=== PATIENT | female | born 1935 | race Caucasian/White ===

== ENCOUNTER → 2017-02-28 | Outpatient (CLI) | payer MEDICARE, BC | LOC: LAB 12:34 | DX: E13.9 Other specified diabetes mellitus without complications (principal); I10 Essential (primary) hypertension; R20.2 Paresthesia of skin; E55.9 Vitamin D deficiency, unspecified ==

== ENCOUNTER → 2017-03-15 | Outpatient (CLI) | payer MEDICARE, BC | LOC: CARDREHAB 10:33 | DX: R09.02 Hypoxemia (principal); G47.19 Other hypersomnia; I10 Essential (primary) hypertension; E11.9 Type 2 diabetes mellitus without complications | CPT/HCPCS: G0399 ==

== ENCOUNTER → 2017-04-01 | Outpatient (CLI) | payer MEDICARE, BC | LOC: RAD 11:11 | DX: R06.02 Shortness of breath (principal); R09.02 Hypoxemia ==

== ENCOUNTER 2017-05-19 11:00 | Outpatient (RCR) | payer MEDICARE, BC | END 2017-05-19 11:30 | disposition home or self-care (01) | LOC: PT 11:00 | DX: M54.31 Sciatica, right side (principal) ==

== ENCOUNTER → 2017-05-31 | Outpatient (CLI) | payer MEDICARE, BC | LOC: RAD 11:38 | DX: R06.02 Shortness of breath (principal); R09.02 Hypoxemia ==

== ENCOUNTER → 2017-06-21 | Outpatient (CLI) | payer MEDICARE, BC | LOC: LAB 14:17 | DX: R53.83 Other fatigue (principal); R30.0 Dysuria ==

== ENCOUNTER → 2017-07-01 | Outpatient (CLI) | payer MEDICARE, BC | LOC: LAB 14:15 | DX: N39.0 Urinary tract infection, site not specified (principal) ==

== ENCOUNTER 2017-09-21 10:01 | Emergency (ER) | payer MEDICARE, BC ==
[2017-09-21] MEDS ORDERED: NATURE'S BLEND400 I1 (10:26)
[2017-09-21] MEDS ORDERED: BENAZEPRIL40 MG PO (10:26)
[2017-09-21] MEDS ORDERED: VITAMIN B122500 MC1 (10:27)
[2017-09-21 11:03] LABS: BASO # 0.1 (0.02-0.10); EOS # 0.3 (0.04-0.40); EOS % 3.3 % (1.0-5.0); HEMATOCRIT 41.5 % (37.0-47.0); HEMOGLOBIN 13.4 g/dL (12.5-16.0); LYMPH# 3.1 (1.50-4.00); MEAN CELL VOLUME 87 fl (78-100); MEAN CORPUSCULAR HEMOGLOBIN 28 pg (27-31); MEAN CORPUSCULAR HGB CONC 32 g/dL (33-37); MEAN PLATELET VOLUME 8.4 fl (7.4-10.4); NEU # 4.6 (1.40-6.50); PLATELET COUNT 257 K/mm3 (130-400); RED BLOOD COUNT 4.75 M/mm3 (4.10-5.30); RED CELL DISTRIBUTION WIDTH 14.4 % (11.5-14.5)
[2017-09-21 11:19] LABS: ALBUMIN 4.2 g/dL (3.5-5.0); BUN/CREATININE RATIO 23.3 (6.0-26.0); CALCIUM 9.4 mg/dL (8.4-10.2); TOTAL BILIRUBIN 0.9 mg/dL (0.2-1.3); TOTAL PROTEIN 7.6 g/dL (6.3-8.2)
[2017-09-21 11:19] LABS: URINE APPEARANCE CLEAR; URINE BILIRUBIN NEGATIVE (NEGATIVE); URINE BLOOD NEGATIVE (NEGATIVE); URINE COLOR YELLOW; URINE GLUCOSE NEGATIVE (NEGATIVE); URINE KETONE NEGATIVE (NEGATIVE); URINE LEUKOCYTE ESTERASE NEGATIVE (NEGATIVE); URINE NITRATE NEGATIVE (NEGATIVE); URINE PROTEIN(semi-quant) TRACE mg/dL (NEGATIVE); URINE UROBILINOGEN NORMAL (NORMAL)
[2017-09-21 11:27] LABS: CKMB ISOENZYME 0.9 ng/mL (0.6-3.5)
[2017-09-21 11:28] LABS: TROPONIN-I < 0.03 ng/mL (0.00-0.06)
[2017-09-21 11:41] LABS: D-DIMER 0.53 mg/L FEU (0.15-0.50)
[2017-09-21] MEDS ORDERED: AUGMENTIN 875-1 EAC1 PO (12:53)
[2017-09-21] MEDS ORDERED: DIFLUCAN150 M1 PO (12:53)
[2017-09-21] MEDS ORDERED: LISINOPRIL20 MG PO (12:58)
[2017-09-21] MEDS ORDERED: NYSTATIN AND TR1 CR1 TP (12:58)
[2017-09-21 13:09] VITALS: BP 175/93
== END 2017-09-21 13:11 | disposition home or self-care (01) ==
LOC: ED 10:01
PROVIDERS: Physician Assistant
DX: I10 Essential (primary) hypertension (principal); J32.9 Chronic sinusitis, unspecified; T46.4X6A Underdosing of angiotensin-converting-enzyme inhibitors, initial encounter; Z91.128 Patient's intentional underdosing of medication regimen for other reason; B37.2 Candidiasis of skin and nail; E11.9 Type 2 diabetes mellitus without complications

== ENCOUNTER → 2017-12-28 | Outpatient (CLI) | payer MEDICARE, BC ==
[~2017-12-28] MED LIST: AUGMENTIN 875-1 EAC1 PO; BENAZEPRIL40 MG PO; DIFLUCAN150 M1 PO; LISINOPRIL20 MG PO; NATURE'S BLEND400 I1; NYSTATIN AND TR1 CR1 TP; VITAMIN B122500 MC1
== END ==
LOC: RAD 05:43
DX: M75.121 Complete rotator cuff tear or rupture of right shoulder, not specified as traumatic (principal); M25.411 Effusion, right shoulder

== ENCOUNTER 2018-01-25 13:09 | Outpatient (RCR) | payer MEDICARE, BC | END 2018-01-25 13:40 | disposition home or self-care (01) | LOC: PT 13:09 | DX: M75.101 Unspecified rotator cuff tear or rupture of right shoulder, not specified as traumatic (principal) | CPT/HCPCS: G8985-GP ==

== ENCOUNTER 2018-04-14 10:46 | Emergency (ER) | payer MEDICARE, BC ==
[~2018-04-14] VITALS: Ht 165.1 cm; Wt 72.7 kg
[2018-04-14] MEDS ORDERED: COLESTIPOL HYDRO1 GM PO (11:00)
[2018-04-14] MEDS ORDERED: D3-20002000 UNIT PO (11:00)
[2018-04-14] MEDS ORDERED: VITAMIN C PUR1000 MG PO (11:01)
[2018-04-14] MEDS ORDERED: B-1100 M1 PO (11:01)
[2018-04-14 11:42] LABS: BASO # 0.1 (0.02-0.10); EOS # 0.3 (0.04-0.40); EOS % 3.2 % (1.0-5.0); HEMATOCRIT 42.7 % (37.0-47.0); HEMOGLOBIN 13.9 g/dL (12.5-16.0); MEAN CELL VOLUME 87 fl (78-100); MEAN CORPUSCULAR HEMOGLOBIN 28 pg (27-31); MEAN CORPUSCULAR HGB CONC 33 g/dL (33-37); MEAN PLATELET VOLUME 8.1 fl (7.4-10.4); MONO # 0.9 (0.20-0.80); NEU # 5.1 (1.40-6.50); PLATELET COUNT 264 K/mm3 (130-400); WHITE BLOOD COUNT 9.4 K/mm3 (4.8-10.8)
[2018-04-14 12:01] LABS: ALBUMIN 3.9 g/dL (3.5-5.0); BUN/CREATININE RATIO 20.8 (6.0-26.0); POTASSIUM 4.6 mmol/L (3.6-5.0); TOTAL BILIRUBIN 0.6 mg/dL (0.2-1.3); TOTAL PROTEIN 7.1 g/dL (6.3-8.2)
[2018-04-14 12:53] LABS: URINE APPEARANCE CLEAR; URINE BILIRUBIN NEGATIVE (NEGATIVE); URINE BLOOD NEGATIVE (NEGATIVE); URINE COLOR YELLOW; URINE GLUCOSE NEGATIVE (NEGATIVE); URINE KETONE NEGATIVE (NEGATIVE); URINE LEUKOCYTE ESTERASE NEGATIVE (NEGATIVE); URINE NITRATE NEGATIVE (NEGATIVE); URINE PROTEIN(semi-quant) NEGATIVE (NEGATIVE); URINE UROBILINOGEN NORMAL (NORMAL); URINE WBC 0-1 /hpf (0-3)
[2018-04-14 13:25] VITALS: BP 122/61
[2018-04-14] MEDS ORDERED: GOOD NEIGHBOR P44 ML NS (13:31)
[2018-04-14] MEDS ORDERED: CORICIDIN HBP1 EACH PO (13:31)
== END 2018-04-14 13:40 | disposition home or self-care (01) ==
LOC: ED 10:46
PROVIDERS: Physician Assistant
DX: J06.9 Acute upper respiratory infection, unspecified (principal); R53.1 Weakness; R06.02 Shortness of breath; E11.9 Type 2 diabetes mellitus without complications; I10 Essential (primary) hypertension; G47.33 Obstructive sleep apnea (adult) (pediatric); R09.02 Hypoxemia; Z79.899 Other long term (current) drug therapy

== ENCOUNTER → 2018-05-16 | Outpatient (CLI) | payer MEDICARE, BC ==
[~2018-05-16] MED LIST changes: +B-1100 M1 PO; +COLESTIPOL HYDRO1 GM PO; +CORICIDIN HBP1 EACH PO; +D3-20002000 UNIT PO; +GOOD NEIGHBOR P44 ML NS; +VITAMIN C PUR1000 MG PO
[2018-05-17 01:14] LABS: FOLATE (FOLIC ACID) 11.9 ng/mL (7.0-31.4)
== END ==
LOC: LAB 14:36
PROVIDERS: Psychiatry & Neurology Neurology
DX: G62.9 Polyneuropathy, unspecified (principal); E55.9 Vitamin D deficiency, unspecified; E61.1 Iron deficiency

== ENCOUNTER 2018-05-24 14:00 | Outpatient (RCR) | payer MEDICARE, BC ==
[2018-07-16] MEDS ORDERED: LOSARTAN POTASS50 M1 PO (17:57)
[2018-07-16] MEDS ORDERED: TEGRETOL200 M1 PO (19:56)
== END 2018-08-14 | disposition home or self-care (01) ==
LOC: PT
DX: M54.5 Low back pain (principal); G89.29 Other chronic pain

== ENCOUNTER 2018-07-16 17:48 | Emergency (ER) | payer MEDICARE, BC ==
[~2018-07-16] VITALS: Ht 154.9 cm; Wt 68.2 kg
[2018-07-16] MEDS ORDERED: LOSARTAN POTASS50 M1 PO (17:57)
[2018-07-16 18:43] LABS: EOS # 0.2 (0.04-0.40); EOS % 2.2 % (1.0-5.0); HEMATOCRIT 38.5 % (37.0-47.0); HEMOGLOBIN 12.7 g/dL (12.5-16.0); LYMPH# 2.9 (1.50-4.00); MEAN CELL VOLUME 89 fl (78-100); MEAN CORPUSCULAR HEMOGLOBIN 29 pg (27-31); MEAN CORPUSCULAR HGB CONC 33 g/dL (33-37); MEAN PLATELET VOLUME 8.7 fl (7.4-10.4); NEU # 6.1 (1.40-6.50); PLATELET COUNT 290 K/mm3 (130-400); RED BLOOD COUNT 4.34 M/mm3 (4.10-5.30); RED CELL DISTRIBUTION WIDTH 14.4 % (11.5-14.5); WHITE BLOOD COUNT 10.3 K/mm3 (4.8-10.8)
[2018-07-16 18:48] LABS: ALBUMIN 3.9 g/dL (3.5-5.0); CALCIUM 8.8 mg/dL (8.4-10.2); TOTAL BILIRUBIN 0.7 mg/dL (0.2-1.3)
[2018-07-16 19:32] LABS: ERYTHROCYTE SEDIMENTATION RATE 20 mm/hr (0-30)
[2018-07-16] MEDS ORDERED: TEGRETOL200 M1 PO (19:56)
[2018-07-16 20:10] VITALS: BP 144/58
== END 2018-07-16 20:10 | disposition home or self-care (01) ==
LOC: ED 17:48
PROVIDERS: Family Medicine
DX: G44.209 Tension-type headache, unspecified, not intractable (principal); G50.0 Trigeminal neuralgia; I10 Essential (primary) hypertension; G47.30 Sleep apnea, unspecified; Z79.899 Other long term (current) drug therapy; Z85.828 Personal history of other malignant neoplasm of skin

== ENCOUNTER 2018-08-07 15:24 | Emergency (ER) | payer MEDICARE, BC ==
[~2018-08-07] VITALS: Wt 73.0 kg
[~2018-08-07 15:24] MED LIST changes: +LOSARTAN POTASS50 M1 PO; +TEGRETOL200 M1 PO
[2018-08-07 16:06] LABS: HEMATOCRIT 39.8 % (37.0-47.0); HEMOGLOBIN 13.4 g/dL (12.5-16.0); MEAN CELL VOLUME 86 fl (78-100); MEAN CORPUSCULAR HEMOGLOBIN 29 pg (27-31); MEAN CORPUSCULAR HGB CONC 34 g/dL (33-37); MEAN PLATELET VOLUME 8.7 fl (7.4-10.4); PLATELET COUNT 296 K/mm3 (130-400); RED BLOOD COUNT 4.63 M/mm3 (4.10-5.30); RED CELL DISTRIBUTION WIDTH 13.4 % (11.5-14.5); WHITE BLOOD COUNT 17.9 K/mm3 (4.8-10.8)
[2018-08-07 16:07] LABS: CALCIUM 8.9 mg/dL (8.4-10.2); POTASSIUM 3.8 mmol/L (3.6-5.0); TOTAL BILIRUBIN 1.3 mg/dL (0.2-1.3); TOTAL PROTEIN 7.5 g/dL (6.3-8.2)
[2018-08-07 16:20] LABS: D-DIMER 0.86 mg/L FEU (0.15-0.50)
[2018-08-07 16:29] LABS: LYMPHOCYTE 13 % (20-51); MONOCYTE 8 % (3-10); NEUTROPHILS 79 % (42-75)
[2018-08-07 17:43] LABS: URINE WBC 0 /hpf (0-3)
[2018-08-07 18:18] LABS: URINE APPEARANCE HAZY; URINE BILIRUBIN NEGATIVE (NEGATIVE); URINE BLOOD TRACE (NEGATIVE); URINE COLOR YELLOW; URINE GLUCOSE NEGATIVE (NEGATIVE); URINE KETONE NEGATIVE (NEGATIVE); URINE LEUKOCYTE ESTERASE NEGATIVE (NEGATIVE); URINE NITRATE NEGATIVE (NEGATIVE); URINE PROTEIN(semi-quant) TRACE mg/dL (NEGATIVE); URINE UROBILINOGEN NORMAL (NORMAL)
[2018-08-07 20:55] VITALS: BP 171/94
== END 2018-08-07 20:55 | disposition short-term general hospital (02) ==
LOC: ED 15:24
PROVIDERS: Nurse Practitioner
DX: M25.532 Pain in left wrist (principal); M25.432 Effusion, left wrist; D72.829 Elevated white blood cell count, unspecified; E87.1 Hypo-osmolality and hyponatremia; I10 Essential (primary) hypertension; Z79.899 Other long term (current) drug therapy; M10.9 Gout, unspecified
CPT/HCPCS: J0696; J1885; J2930; J7030; Q9967

== ENCOUNTER → 2018-08-17 | Outpatient (CLI) | payer MEDICARE, BC ==
[2018-08-07 20:55] VITALS: BP 171/94
[2018-08-17 11:08] LABS: BASO # 0.1 (0.02-0.10); EOS # 0.3 (0.04-0.40); EOS % 3.7 % (1.0-5.0); HEMATOCRIT 41.3 % (37.0-47.0); HEMOGLOBIN 13.4 g/dL (12.5-16.0); LYMPH# 2.8 (1.50-4.00); MEAN CELL VOLUME 88 fl (78-100); MEAN CORPUSCULAR HEMOGLOBIN 29 pg (27-31); MEAN CORPUSCULAR HGB CONC 32 g/dL (33-37); MEAN PLATELET VOLUME 8.3 fl (7.4-10.4); PLATELET COUNT 330 K/mm3 (130-400); RED BLOOD COUNT 4.67 M/mm3 (4.10-5.30); RED CELL DISTRIBUTION WIDTH 13.7 % (11.5-14.5); WHITE BLOOD COUNT 8.2 K/mm3 (4.8-10.8)
[2018-08-17 11:14] LABS: ALBUMIN 3.8 g/dL (3.5-5.0); CALCIUM 9.2 mg/dL (8.4-10.2); POTASSIUM 4.1 mmol/L (3.6-5.0); TOTAL BILIRUBIN 0.5 mg/dL (0.2-1.3)
== END ==
LOC: LAB 10:41
PROVIDERS: Internal Medicine
DX: L03.114 Cellulitis of left upper limb (principal); G62.9 Polyneuropathy, unspecified

== ENCOUNTER → 2018-09-12 | Outpatient (CLI) | payer MEDICARE, BC ==
[2018-09-12 16:12] LABS: URINE APPEARANCE HAZY; URINE COLOR YELLOW; URINE PROTEIN(semi-quant) TRACE mg/dL (NEGATIVE)
[2018-09-12 16:13] LABS: URINE BILIRUBIN NEGATIVE (NEGATIVE); URINE BLOOD TRACE (NEGATIVE); URINE GLUCOSE NEGATIVE (NEGATIVE); URINE KETONE 1+ (NEGATIVE); URINE LEUKOCYTE ESTERASE 2+ (NEGATIVE); URINE MUCUS PRESENT (NOT PRESENT); URINE NITRATE NEGATIVE (NEGATIVE); URINE UROBILINOGEN NORMAL (NORMAL)
== END ==
LOC: LAB 15:34
PROVIDERS: Internal Medicine
DX: N30.00 Acute cystitis without hematuria (principal)

== ENCOUNTER → 2019-01-12 | Outpatient (CLI) | payer MEDICARE, BC ==
[2019-01-12 12:03] LABS: ALBUMIN 4.1 g/dL (3.5-5.0); CALCIUM 9.6 mg/dL (8.4-10.2); POTASSIUM 4.3 mmol/L (3.6-5.0); TOTAL BILIRUBIN 0.4 mg/dL (0.2-1.3); TOTAL PROTEIN 7.7 g/dL (6.3-8.2)
[2019-01-12 12:19] LABS: BASO # 0.1 (0.02-0.10); EOS # 0.2 (0.04-0.40); EOS % 1.7 % (1.0-5.0); HEMATOCRIT 41.6 % (37.0-47.0); HEMOGLOBIN 13.3 g/dL (12.5-16.0); LYMPH# 2.6 (1.50-4.00); MEAN CELL VOLUME 86 fl (78-100); MEAN CORPUSCULAR HEMOGLOBIN 28 pg (27-31); MEAN CORPUSCULAR HGB CONC 32 g/dL (33-37); MEAN PLATELET VOLUME 8.6 fl (7.4-10.4); MONO # 1.1 (0.20-0.80); NEU # 5.6 (1.40-6.50); PLATELET COUNT 436 K/mm3 (130-400); RED BLOOD COUNT 4.83 M/mm3 (4.10-5.30); RED CELL DISTRIBUTION WIDTH 13.5 % (11.5-14.5); WHITE BLOOD COUNT 9.5 K/mm3 (4.8-10.8)
[2019-01-12 13:03] LABS: URINE APPEARANCE HAZY; URINE BILIRUBIN NEGATIVE (NEGATIVE); URINE BLOOD NEGATIVE (NEGATIVE); URINE COLOR YELLOW; URINE GLUCOSE NEGATIVE (NEGATIVE); URINE KETONE NEGATIVE (NEGATIVE); URINE LEUKOCYTE ESTERASE 1+ (NEGATIVE); URINE NITRATE NEGATIVE (NEGATIVE); URINE PROTEIN(semi-quant) TRACE mg/dL (NEGATIVE); URINE UROBILINOGEN NORMAL (NORMAL)
[2019-01-12 13:58] LABS: ERYTHROCYTE SEDIMENTATION RATE 47 mm/hr (0-30)
== END ==
LOC: LAB 10:51
PROVIDERS: Internal Medicine
DX: R10.84 Generalized abdominal pain (principal)

== ENCOUNTER 2019-03-28 15:34 | Inpatient (IN) | payer MEDICARE ==
[~2019-03-28] VITALS: Ht 154.9 cm; Wt 69.8 kg
[~2019-03-28 15:34] MED LIST changes: +AMLODIPINE BESYL5 MG PO; +CIPRO 500MG TA500 MG PO; +FLUCONAZOLE200 MG PO; +MEDROL DOSEPAK4 MG PO
[2019-03-28] MEDS ORDERED: TRAMADOL 50 MG TAB PO (16:09)
[2019-03-28 16:35] VITALS: BP 133/69
[2019-03-28 16:41] VITALS: BP 133/69
[2019-03-28 18:23] VITALS: BP 145/80
[2019-03-28 22:56] VITALS: BP 127/70
[2019-03-29 03:34] VITALS: BP 152/73
[2019-03-29 06:18] VITALS: BP 147/76
[2019-03-29 06:44] LABS: HEMATOCRIT 35.8 % (37.0-47.0); HEMOGLOBIN 11.5 g/dL (12.5-16.0); MEAN CELL VOLUME 83 fl (78-100); MEAN CORPUSCULAR HEMOGLOBIN 27 pg (27-31); MEAN CORPUSCULAR HGB CONC 32 g/dL (33-37); MEAN PLATELET VOLUME 8.2 fl (7.4-10.4); PLATELET COUNT 431 K/mm3 (130-400); RED BLOOD COUNT 4.34 M/mm3 (4.10-5.30); RED CELL DISTRIBUTION WIDTH 14.9 % (11.5-14.5); WHITE BLOOD COUNT 12.7 K/mm3 (4.8-10.8)
[2019-03-29 07:14] LABS: CALCIUM 9.6 mg/dL (8.3-10.5); POTASSIUM 3.9 mmol/L (3.5-5.1)
[2019-03-29 07:21] LABS: LYMPHOCYTE 7 % (20-51); MONOCYTE 6 % (3-10); NEUTROPHILS 87 % (42-75)
[2019-03-29 11:05] VITALS: BP 133/72
[2019-03-29 15:14] VITALS: BP 132/75
[2019-03-29 18:05] VITALS: BP 134/76
[2019-03-29 22:14] VITALS: BP 148/75
[2019-03-30 03:00] VITALS: BP 131/74
[2019-03-30 06:21] VITALS: BP 127/70
[2019-03-30 06:41] LABS: HEMATOCRIT 34.9 % (37.0-47.0); HEMOGLOBIN 11.2 g/dL (12.5-16.0); LYMPH# 2.4 (1.50-4.00); MEAN CELL VOLUME 84 fl (78-100); MEAN CORPUSCULAR HEMOGLOBIN 27 pg (27-31); MEAN CORPUSCULAR HGB CONC 32 g/dL (33-37); MEAN PLATELET VOLUME 8.3 fl (7.4-10.4); PLATELET COUNT 421 K/mm3 (130-400); RED BLOOD COUNT 4.18 M/mm3 (4.10-5.30); RED CELL DISTRIBUTION WIDTH 15.2 % (11.5-14.5); WHITE BLOOD COUNT 15.4 K/mm3 (4.8-10.8)
[2019-03-30 06:42] LABS: MONO # 1.8 (0.20-0.80); NEU # 11.2 (1.40-6.50)
[2019-03-30 07:23] LABS: ALBUMIN 3.1 g/dL (3.4-4.8); CALCIUM 9.1 mg/dL (8.3-10.5); POTASSIUM 3.6 mmol/L (3.5-5.1); TOTAL BILIRUBIN 0.2 mg/dL (0.2-1.2); TOTAL PROTEIN 6.4 g/dL (6.2-8.1)
[2019-03-30 11:09] VITALS: BP 121/67
[2019-03-30 15:06] VITALS: BP 139/76
[2019-03-30 18:24] VITALS: BP 147/79
[2019-03-30 23:09] VITALS: BP 125/58
[2019-03-31 02:53] VITALS: BP 154/74
[2019-03-31 06:00] VITALS: BP 119/63
[2019-03-31 11:07] VITALS: BP 125/74
[2019-03-31 12:50] LABS: HEMATOCRIT 34.7 % (37.0-47.0); HEMOGLOBIN 10.9 g/dL (12.5-16.0); MEAN CELL VOLUME 84 fl (78-100); MEAN CORPUSCULAR HEMOGLOBIN 26 pg (27-31); MEAN CORPUSCULAR HGB CONC 31 g/dL (33-37); MEAN PLATELET VOLUME 7.8 fl (7.4-10.4); PLATELET COUNT 463 K/mm3 (130-400); RED BLOOD COUNT 4.14 M/mm3 (4.10-5.30); RED CELL DISTRIBUTION WIDTH 15.2 % (11.5-14.5); WHITE BLOOD COUNT 12.3 K/mm3 (4.8-10.8)
[2019-03-31 13:09] LABS: CALCIUM 8.9 mg/dL (8.3-10.5); POTASSIUM 3.4 mmol/L (3.5-5.1)
[2019-03-31 13:23] LABS: LYMPHOCYTE 28 % (20-51); MONOCYTE 17 % (3-10); NEUTROPHILS 55 % (42-75)
[2019-03-31 13:23] LABS: URINE APPEARANCE CLEAR; URINE BILIRUBIN NEGATIVE (NEGATIVE); URINE BLOOD NEGATIVE (NEGATIVE); URINE COLOR YELLOW; URINE GLUCOSE NEGATIVE (NEGATIVE); URINE KETONE NEGATIVE (NEGATIVE); URINE LEUKOCYTE ESTERASE NEGATIVE (NEGATIVE); URINE NITRATE NEGATIVE (NEGATIVE); URINE PROTEIN(semi-quant) NEGATIVE (NEGATIVE); URINE UROBILINOGEN NORMAL (NORMAL)
[2019-03-31 15:11] VITALS: BP 130/76
[2019-03-31 18:33] VITALS: BP 132/64
[2019-03-31 23:00] VITALS: BP 145/87
[2019-04-01 03:08] VITALS: BP 142/72
[2019-04-01 06:30] VITALS: BP 154/80
[2019-04-01] MEDS ORDERED: CLOPIDOGREL PO (10:34)
[2019-04-01 11:33] VITALS: BP 132/73
[2019-04-03 01:24] LABS: GRAM STAIN AMS
== END 2019-04-01 12:43 | disposition home health service (06) | DRG 554 ==
LOC: MED/SURG 15:34
PROVIDERS: Family Medicine; Nurse Practitioner Family; ADMIT Physician Assistant
DX: M13.861 Other specified arthritis, right knee (principal); I10 Essential (primary) hypertension
CPT/HCPCS: A4216; J0696; J1650; J3370; J7030; J7050; J7512

== ENCOUNTER → 2019-06-28 | Outpatient (CLI) | payer MEDICARE ==
[~2019-06-28] MED LIST changes: +CLOPIDOGREL PO; +TRAMADOL 50 MG TAB PO
[2019-06-28 10:28] LABS: BASO # 0.1 (0.02-0.10); EOS # 0.2 (0.04-0.40); EOS % 1.9 % (1.0-5.0); HEMATOCRIT 42.2 % (37.0-47.0); HEMOGLOBIN 13.4 g/dL (12.5-16.0); LYMPH# 2.3 (1.50-4.00); MEAN CELL VOLUME 84 fl (78-100); MEAN CORPUSCULAR HEMOGLOBIN 27 pg (27-31); MEAN CORPUSCULAR HGB CONC 32 g/dL (33-37); MEAN PLATELET VOLUME 8.3 fl (7.4-10.4); NEU # 5.3 (1.40-6.50); PLATELET COUNT 303 K/mm3 (130-400); RED BLOOD COUNT 5.02 M/mm3 (4.10-5.30); RED CELL DISTRIBUTION WIDTH 14.5 % (11.5-14.5); WHITE BLOOD COUNT 8.8 K/mm3 (4.8-10.8)
[2019-06-28 10:50] LABS: POTASSIUM 4.5 mmol/L (3.5-5.1)
[2019-06-28 10:51] LABS: CALCIUM 9.4 mg/dL (8.3-10.5)
[2019-06-28 10:53] LABS: TOTAL PROTEIN 7.2 g/dL (6.2-8.1)
[2019-06-28 10:54] LABS: TOTAL BILIRUBIN 0.6 mg/dL (0.2-1.2)
[2019-06-28 11:30] LABS: ERYTHROCYTE SEDIMENTATION RATE 40 mm/hr (0-30)
== END ==
LOC: LAB 10:14
PROVIDERS: Internal Medicine
DX: M48.061 Spinal stenosis, lumbar region without neurogenic claudication (principal); G63 Polyneuropathy in diseases classified elsewhere; M51.37 Other intervertebral disc degeneration, lumbosacral region; R53.83 Other fatigue; K90.89 Other intestinal malabsorption

== ENCOUNTER 2019-07-29 14:13 | Emergency (ER) | payer MEDICARE ==
[~2019-07-29] VITALS: Wt 63.5 kg
[2019-07-29 14:40] LABS: HEMATOCRIT 40.8 % (37.0-47.0); HEMOGLOBIN 13.6 g/dL (12.5-16.0); MEAN CELL VOLUME 81 fl (78-100); MEAN CORPUSCULAR HEMOGLOBIN 27 pg (27-31); MEAN CORPUSCULAR HGB CONC 33 g/dL (33-37); MEAN PLATELET VOLUME 8.7 fl (7.4-10.4); PLATELET COUNT 269 K/mm3 (130-400); RED BLOOD COUNT 5.04 M/mm3 (4.10-5.30); RED CELL DISTRIBUTION WIDTH 14.1 % (11.5-14.5); WHITE BLOOD COUNT 15.3 K/mm3 (4.8-10.8)
[2019-07-29 14:53] LABS: ALBUMIN 3.8 g/dL (3.4-4.8)
[2019-07-29 14:54] LABS: POTASSIUM 3.9 mmol/L (3.5-5.1)
[2019-07-29 14:55] LABS: CALCIUM 9.4 mg/dL (8.3-10.5)
[2019-07-29 14:56] LABS: TOTAL PROTEIN 7.5 g/dL (6.2-8.1)
[2019-07-29 14:58] LABS: TOTAL BILIRUBIN 1.9 mg/dL (0.2-1.2)
[2019-07-29 15:43] LABS: ERYTHROCYTE SEDIMENTATION RATE 30 mm/hr (0-30); LYMPHOCYTE 18 % (20-51); MONOCYTE 9 % (3-10); NEUTROPHILS 73 % (42-75)
[2019-07-29 17:12] LABS: URINE APPEARANCE HAZY; URINE BILIRUBIN 1+ (NEGATIVE); URINE BLOOD TRACE (NEGATIVE); URINE COLOR YELLOW; URINE GLUCOSE NEGATIVE (NEGATIVE); URINE KETONE 1+ (NEGATIVE); URINE LEUKOCYTE ESTERASE NEGATIVE (NEGATIVE); URINE NITRATE NEGATIVE (NEGATIVE); URINE PROTEIN(semi-quant) 1+ mg/dL (NEGATIVE); URINE UROBILINOGEN NORMAL (NORMAL); URINE WBC 0-1 /hpf (0-3)
[2019-07-29 17:13] LABS: URINE MUCUS PRESENT (NOT PRESENT)
[2019-07-29 17:57] VITALS: BP 136/51
== END 2019-07-29 17:52 | disposition home or self-care (01) ==
LOC: ED 14:13
PROVIDERS: Family Medicine
DX: M11.811 Other specified crystal arthropathies, right shoulder (principal); M11.821 Other specified crystal arthropathies, right elbow; M11.831 Other specified crystal arthropathies, right wrist; E11.9 Type 2 diabetes mellitus without complications; I10 Essential (primary) hypertension; Z90.49 Acquired absence of other specified parts of digestive tract; Z90.710 Acquired absence of both cervix and uterus; Z98.890 Other specified postprocedural states
CPT/HCPCS: J1885

== ENCOUNTER → 2019-07-31 | Outpatient (CLI) | payer MEDICARE ==
[~2019-07-31] VITALS: Ht 154.9 cm; Wt 60.9 kg
[2019-07-31 12:47] VITALS: BP 159/71
[2019-07-31 13:05] LABS: ALBUMIN 4.2 g/dL (3.4-4.8); SODIUM 134 mmol/L (136-145)
[2019-07-31 13:06] LABS: CALCIUM 9.9 mg/dL (8.3-10.5)
[2019-07-31 13:07] LABS: GLUCOSE 144 mg/dL (65-105); TOTAL PROTEIN 8.3 g/dL (6.2-8.1)
[2019-07-31 13:09] LABS: CARBON DIOXIDE 20 mmol/L (23-31); TOTAL BILIRUBIN 1.2 mg/dL (0.2-1.2)
[2019-07-31 13:12] LABS: HEMATOCRIT 41.5 % (37.0-47.0); HEMOGLOBIN 13.9 g/dL (12.5-16.0); MEAN CELL VOLUME 81 fl (78-100); MEAN CORPUSCULAR HEMOGLOBIN 27 pg (27-31); MEAN CORPUSCULAR HGB CONC 34 g/dL (33-37); MEAN PLATELET VOLUME 9.2 fl (7.4-10.4); MONO # 1.4 (0.20-0.80); PLATELET COUNT 304 K/mm3 (130-400); RED BLOOD COUNT 5.14 M/mm3 (4.10-5.30); RED CELL DISTRIBUTION WIDTH 14.1 % (11.5-14.5); WHITE BLOOD COUNT 14.6 K/mm3 (4.8-10.8)
[2019-07-31 13:13] LABS: AST-SGOT 13 U/L (5-34)
[2019-07-31 13:14] LABS: ALT/SGPT 12 U/L (0-55)
[2019-07-31 13:15] LABS: NEU # 11.2 (1.40-6.50)
[2019-07-31 13:44] LABS: LIPASE < 4 U/L (8-78)
[2019-07-31 14:28] LABS: ERYTHROCYTE SEDIMENTATION RATE 44 mm/hr (0-30)
== END ==
LOC: AMSURD 12:04
PROVIDERS: Internal Medicine
DX: E86.0 Dehydration (principal); R06.02 Shortness of breath; R50.9 Fever, unspecified; R11.2 Nausea with vomiting, unspecified; E13.9 Other specified diabetes mellitus without complications
CPT/HCPCS: J2405; J7120

== ENCOUNTER → 2019-08-28 | Outpatient (CLI) | payer MEDICARE ==
[2019-07-31 12:47] VITALS: BP 159/71
[2019-08-28 13:38] LABS: URINE APPEARANCE CLEAR; URINE BILIRUBIN NEGATIVE (NEGATIVE); URINE BLOOD NEGATIVE (NEGATIVE); URINE COLOR YELLOW; URINE GLUCOSE NEGATIVE (NEGATIVE); URINE KETONE NEGATIVE (NEGATIVE); URINE LEUKOCYTE ESTERASE TRACE (NEGATIVE); URINE NITRATE NEGATIVE (NEGATIVE); URINE PROTEIN(semi-quant) TRACE mg/dL (NEGATIVE); URINE UROBILINOGEN NORMAL (NORMAL)
== END ==
LOC: LAB 12:41
PROVIDERS: Internal Medicine
DX: E11.9 Type 2 diabetes mellitus without complications (principal); M89.8X9 Other specified disorders of bone, unspecified site

== ENCOUNTER → 2019-09-26 | Outpatient (CLI) | payer MEDICARE ==
[2019-07-31 12:47] VITALS: BP 159/71
== END ==
LOC: LAB 10:17
DX: M85.80 Other specified disorders of bone density and structure, unspecified site (principal); M79.89 Other specified soft tissue disorders

== ENCOUNTER → 2020-04-10 | Outpatient (CLI) | payer MEDICARE ==
[2019-07-31 12:47] VITALS: BP 159/71
[2020-04-10 17:25] LABS: HEMATOCRIT 37.2 % (37.0-47.0); HEMOGLOBIN 11.9 g/dL (12.5-16.0); MEAN CELL VOLUME 86 fl (78-100); MEAN CORPUSCULAR HEMOGLOBIN 28 pg (27-31); MEAN CORPUSCULAR HGB CONC 32 g/dL (33-37); MEAN PLATELET VOLUME 8.2 fl (7.4-10.4); PLATELET COUNT 337 K/mm3 (130-400); RED BLOOD COUNT 4.32 M/mm3 (4.10-5.30); RED CELL DISTRIBUTION WIDTH 15.2 % (11.5-14.5); WHITE BLOOD COUNT 8.3 K/mm3 (4.8-10.8)
[2020-04-10 17:30] LABS: ALBUMIN 3.9 g/dL (3.4-4.8)
[2020-04-10 17:31] LABS: CALCIUM 9.1 mg/dL (8.3-10.5)
[2020-04-10 17:32] LABS: TOTAL PROTEIN 6.9 g/dL (6.2-8.1)
[2020-04-10 17:34] LABS: TOTAL BILIRUBIN 0.7 mg/dL (0.2-1.2)
[2020-04-10 17:39] LABS: LYMPHOCYTE 26 % (20-51); MONOCYTE 13 % (3-10); NEUTROPHILS 54 % (42-75)
== END ==
LOC: LAB 16:50
PROVIDERS: Internal Medicine
DX: E11.42 Type 2 diabetes mellitus with diabetic polyneuropathy (principal); M48.061 Spinal stenosis, lumbar region without neurogenic claudication; M51.37 Other intervertebral disc degeneration, lumbosacral region; M1A.0720 Idiopathic chronic gout, left ankle and foot, without tophus (tophi); E86.0 Dehydration; R06.02 Shortness of breath; R11.10 Vomiting, unspecified

== ENCOUNTER → 2020-09-04 | Outpatient (CLI) | payer MEDICARE ==
[2019-07-31 12:47] VITALS: BP 159/71
[2020-09-04 16:30] LABS: BASO # 0.1 (0.02-0.10); EOS # 0.2 (0.04-0.40); EOS % 2.3 % (1.0-5.0); HEMATOCRIT 40.2 % (37.0-47.0); HEMOGLOBIN 12.8 g/dL (12.5-16.0); LYMPH# 2.8 (1.50-4.00); MEAN CELL VOLUME 86 fl (78-100); MEAN CORPUSCULAR HEMOGLOBIN 27 pg (27-31); MEAN CORPUSCULAR HGB CONC 32 g/dL (33-37); MEAN PLATELET VOLUME 7.9 fl (7.4-10.4); NEU # 5.4 (1.40-6.50); PLATELET COUNT 345 K/mm3 (130-400); RED BLOOD COUNT 4.69 M/mm3 (4.10-5.30); RED CELL DISTRIBUTION WIDTH 14.9 % (11.5-14.5); WHITE BLOOD COUNT 9.5 K/mm3 (4.8-10.8)
[2020-09-04 16:48] LABS: MAGNESIUM 1.93 mg/dL (1.60-2.60)
[2020-09-04 17:46] LABS: ERYTHROCYTE SEDIMENTATION RATE 30 mm/hr (0-30)
[2020-09-04 17:57] LABS: POTASSIUM 3.7 mmol/L (3.5-5.1)
[2020-09-04 17:58] LABS: CALCIUM 9.2 mg/dL (8.3-10.5)
[2020-09-04 18:00] LABS: TOTAL PROTEIN 7.5 g/dL (6.2-8.1)
[2020-09-04 18:01] LABS: TOTAL BILIRUBIN 0.4 mg/dL (0.2-1.2)
== END ==
LOC: LAB 16:11
PROVIDERS: Internal Medicine
DX: K90.9 Intestinal malabsorption, unspecified (principal); G63 Polyneuropathy in diseases classified elsewhere; M1A.00X0 Idiopathic chronic gout, unspecified site, without tophus (tophi); R73.03 Prediabetes

== ENCOUNTER 2020-10-10 16:31 | Emergency (ER) | payer MEDICARE ==
[~2020-10-10] VITALS: Ht 157.5 cm; Wt 73.6 kg
[~2020-10-10 16:31] MED LIST changes: -AMOXICILLIN 50500 MG PO
[2020-10-10 17:35] LABS: BASO # 0.1 (0.02-0.10); EOS # 0.2 (0.04-0.40); HEMATOCRIT 39.3 % (37.0-47.0); HEMOGLOBIN 12.2 g/dL (12.5-16.0); LYMPH# 2.1 (1.50-4.00); MEAN CELL VOLUME 88 fl (78-100); MEAN CORPUSCULAR HEMOGLOBIN 27 pg (27-31); MEAN CORPUSCULAR HGB CONC 31 g/dL (33-37); MEAN PLATELET VOLUME 8.2 fl (7.4-10.4); NEU # 7.8 (1.40-6.50); PLATELET COUNT 284 K/mm3 (130-400); RED BLOOD COUNT 4.46 M/mm3 (4.10-5.30); RED CELL DISTRIBUTION WIDTH 15.8 % (11.5-14.5); WHITE BLOOD COUNT 11.3 K/mm3 (4.8-10.8)
[2020-10-10] MEDS ORDERED: AMOXICILLIN 50500 MG PO (17:59)
[2020-10-10 18:37] VITALS: BP 173/86
== END 2020-10-10 18:37 | disposition home or self-care (01) ==
LOC: ED 16:31
PROVIDERS: Family Medicine
DX: J02.9 Acute pharyngitis, unspecified (principal); H92.01 Otalgia, right ear; I10 Essential (primary) hypertension; Z90.710 Acquired absence of both cervix and uterus; Z90.49 Acquired absence of other specified parts of digestive tract; Z90.89 Acquired absence of other organs; Z88.1 Allergy status to other antibiotic agents; Z79.02 Long term (current) use of antithrombotics/antiplatelets

== ENCOUNTER → 2020-10-10 | Outpatient (CLI) | payer MEDICARE ==
[2019-07-31 12:47] VITALS: BP 159/71
[~2020-10-10] MED LIST changes: +AMOXICILLIN 50500 MG PO
== END ==
LOC: LAB 14:37
DX: R05 Cough (principal); R68.83 Chills (without fever); Z20.828 Contact with and (suspected) exposure to other viral communicable diseases

== ENCOUNTER → 2021-02-25 | Outpatient (CLI) | payer MEDICARE ==
[~2021-02-25] MED LIST changes: +AMOXICILLIN 50500 MG PO; +CEFDINIR300 MG PO; +CLOPIDOGREL75 M2 PO; +LOMOTIL TAB 01 UDTAB; +ONDANSETRON ODT8 MG PO; +PROBIOTICA100 MILLIO PO; +SEPTRA DS 8001 TAB PO; +SERTRALINE HYDR25 MG PO
[2021-02-25 12:27] LABS: CLUE CELLS NOT OBSERVED (Not Observd)
== END ==
LOC: LAB 11:33
PROVIDERS: Nurse Practitioner
DX: R39.198 Other difficulties with micturition (principal)
CPT/HCPCS: Q0111

== ENCOUNTER → 2021-03-24 | Outpatient (CLI) | payer MEDICARE | LOC: LAB 12:38 | DX: N30.01 Acute cystitis with hematuria (principal) ==

== ENCOUNTER 2021-03-30 16:55 | Emergency (ER) | payer MEDICARE ==
[~2021-03-30 16:55] MED LIST changes: -CEFDINIR300 MG PO; -CLOPIDOGREL75 M2 PO; -LOMOTIL TAB 01 UDTAB; -ONDANSETRON ODT8 MG PO; -PROBIOTICA100 MILLIO PO; -SEPTRA DS 8001 TAB PO; -SERTRALINE HYDR25 MG PO
[2021-03-30] MEDS ORDERED: LOMOTIL TAB 01 UDTAB (17:25)
[2021-03-30] MEDS ORDERED: CLOPIDOGREL75 M2 PO (17:25)
[2021-03-30] MEDS ORDERED: SEPTRA DS 8001 TAB PO (17:25)
[2021-03-30] MEDS ORDERED: SERTRALINE HYDR25 MG PO (17:26)
[2021-03-30 17:36] LABS: BASO # 0.08 (0.02-0.10); EOS # 0.18 (0.04-0.40); EOS % 1.5 % (1.0-5.0); HEMATOCRIT 42.6 % (37.0-47.0); LYMPH# 3.09 (1.50-4.00); MEAN CELL VOLUME 84 fl (78-100); MEAN CORPUSCULAR HEMOGLOBIN 28 pg (27-31); MEAN CORPUSCULAR HGB CONC 33 g/dL (33-37); MEAN PLATELET VOLUME 7.9 fl (7.4-10.4); MONO # 1.07 (0.20-0.80); NEU # 7.32 (1.40-6.50); PLATELET COUNT 313 K/mm3 (130-400); RED BLOOD COUNT 5.08 M/mm3 (4.10-5.30); RED CELL DISTRIBUTION WIDTH 13.7 % (11.5-14.5); WHITE BLOOD COUNT 11.8 K/mm3 (4.8-10.8)
[2021-03-30 17:43] LABS: ALBUMIN 4.2 g/dL (3.4-4.8); POTASSIUM 4.8 mmol/L (3.5-5.1); SODIUM 132 mmol/L (136-145)
[2021-03-30 17:44] LABS: CALCIUM 9.3 mg/dL (8.3-10.5)
[2021-03-30 17:46] LABS: GLUCOSE 159 mg/dL (65-105); TOTAL PROTEIN 7.5 g/dL (6.2-8.1)
[2021-03-30 17:46] LABS: URINE APPEARANCE CLOUDY; URINE COLOR YELLOW; URINE GLUCOSE NEGATIVE (NEGATIVE); URINE PROTEIN(semi-quant) 2+ mg/dL (NEGATIVE)
[2021-03-30 17:47] LABS: CARBON DIOXIDE 19 mmol/L (23-31); TOTAL BILIRUBIN 0.7 mg/dL (0.2-1.2)
[2021-03-30 17:47] LABS: URINE BILIRUBIN 2+ (NEGATIVE); URINE BLOOD TRACE (NEGATIVE); URINE LEUKOCYTE ESTERASE 2+ (NEGATIVE); URINE MUCUS PRESENT (NOT PRESENT); URINE NITRATE NEGATIVE (NEGATIVE); URINE UROBILINOGEN NORMAL (NORMAL); URINE WBC 16-30 /hpf (0-3)
[2021-03-30 17:51] LABS: AST-SGOT 20 U/L (5-34)
[2021-03-30 17:52] LABS: ALT/SGPT 29 U/L (0-55)
[2021-03-30 17:53] LABS: LIPASE 6 U/L (8-78)
[2021-03-30 18:06] LABS: TROPONIN-I < 0.03 ng/mL (<0.030)
[2021-03-30 19:56] VITALS: BP 130/60
== END 2021-03-30 19:56 | disposition other institution (70) ==
LOC: ED 16:55
PROVIDERS: Nurse Practitioner
DX: N12 Tubulo-interstitial nephritis, not specified as acute or chronic (principal); N28.9 Disorder of kidney and ureter, unspecified; E86.0 Dehydration; E87.1 Hypo-osmolality and hyponatremia; F31.9 Bipolar disorder, unspecified; F41.9 Anxiety disorder, unspecified; E66.9 Obesity, unspecified; Z90.710 Acquired absence of both cervix and uterus; Z79.02 Long term (current) use of antithrombotics/antiplatelets; Z79.899 Other long term (current) drug therapy; Z20.822 Contact with and (suspected) exposure to COVID-19
CPT/HCPCS: J0696; J2405; J7030; Q9967

== ENCOUNTER 2021-03-30 19:11 | Inpatient (IN) | payer MEDICARE ==
[~2021-03-30 19:11] MED LIST changes: +CLOPIDOGREL75 M2 PO; +LOMOTIL TAB 01 UDTAB; +SEPTRA DS 8001 TAB PO; +SERTRALINE HYDR25 MG PO
--- NOTE | 2021-03-30 19:11 | NUR ---
Patient admitted to room 203 via wheelchair from ER with DX of Pylonephritis, Nausea, vomiting, dehydration, Acute kidney insufficiency, and hyponatremia. Patients [id number] accompanies patient to room then left for the night. Patient alert and oriented x 4. Pleasant. Oriented to room, call light, safety and bathroom. Bed alarms on. Report received from Marley GARCIA. See admission assessment. States just a little queezy when getting up and slight dizziness. Reports slight headache but declines need for pain med.
[2021-03-30 19:15] VITALS: BP 130/60
[2021-03-30 22:49] VITALS: BP 110/58
[2021-03-30 22:50] VITALS: BP 110/58
--- NOTE | 2021-03-30 23:20 | NUR ---
Patient assisted up to the bathroom CGA. Voids clear yellow urine. Johana CHERRY notified of patient "little queezy". New orders received and phenergan 12.5 mg given IV piggyback. SCD's applied then states "do I have to wear these all night"? They're too noisy. SCD's removed. Reviewed lovenox for DVT prophalaxis and given.
--- NOTE | 2021-03-31 03:40 | NUR ---
Patient rests with eyes closed. Respirations with ease.
[2021-03-31 05:26] VITALS: BP 117/57
--- NOTE | 2021-03-31 06:01 | NUR ---
Patient was resting with eyes closed. Awake and up to the bathroom with assist and had small liquid brown stool. Rests back in bed. Denies nausea or further needs.
[2021-03-31 06:51] LABS: BASO # 0.07 (0.02-0.10); EOS # 0.41 (0.04-0.40); EOS % 4.2 % (1.0-5.0); HEMATOCRIT 39.6 % (37.0-47.0); HEMOGLOBIN 12.9 g/dL (12.5-16.0); LYMPH# 3.31 (1.50-4.00); MEAN CELL VOLUME 85 fl (78-100); MEAN CORPUSCULAR HEMOGLOBIN 28 pg (27-31); MEAN CORPUSCULAR HGB CONC 33 g/dL (33-37); MEAN PLATELET VOLUME 7.8 fl (7.4-10.4); MONO # 1.03 (0.20-0.80); NEU # 4.84 (1.40-6.50); PLATELET COUNT 268 K/mm3 (130-400); RED BLOOD COUNT 4.67 M/mm3 (4.10-5.30); RED CELL DISTRIBUTION WIDTH 13.9 % (11.5-14.5); WHITE BLOOD COUNT 9.7 K/mm3 (4.8-10.8)
[2021-03-31 07:10] LABS: ALBUMIN 3.6 g/dL (3.4-4.8)
[2021-03-31 07:11] LABS: POTASSIUM 4.4 mmol/L (3.5-5.1)
[2021-03-31 07:12] LABS: CALCIUM 8.3 mg/dL (8.3-10.5)
[2021-03-31 07:13] LABS: TOTAL PROTEIN 6.5 g/dL (6.2-8.1)
[2021-03-31 07:15] LABS: TOTAL BILIRUBIN 0.8 mg/dL (0.2-1.2)
--- NOTE | 2021-03-31 07:19 | NUR ---
Report recieved by RADHA Abbasi
--- NOTE | 2021-03-31 07:52 | NUR ---
Patient resting in bed. NS running at 125m/hr. A&Ox4, c/o headache rating it a 4 out of 10 on a numeric pain scale. PRN med given. Requesting to rest prior to breakfast arriving. Bed in lowest and locked position. Call light within reach.
--- NOTE | 2021-03-31 08:21 | NUR ---
Critical lab value of CO2 17 reported to Bettina Killian APRN
[2021-03-31 09:48] VITALS: BP 112/61
--- NOTE | 2021-03-31 09:49 | NUR ---
Spoke with Mary Ellen and her and daughterraysa. She states that she has had [facility] in the past and would like that sevice again if indicated. Spoke about SWB program here at [facility]. She is not interested in that at this time unless indicated. She lives with her independently. She has a ramp in to her home. She uses a 4 wheeled walker in the house.
--- NOTE | 2021-03-31 10:22 | NUR ---
This nurse spoke with patient's daughter in-law. She requested Dr. Hubbard order a CT scan of the patient's brain. She is concerned the patient has had a TIA since last scan. She has noticed a decline in the last month. She reports the patient is needing assistance with ADL's and cooking. Call transfered to for further assistance. Bettina Killian APRN notified of patient's families request for CT. Patient visiting with more family in room.
--- NOTE | 2021-03-31 10:45 | NUR ---
Spoke with Amelia Burselena (daughter in law). She states that Mary Ellen has declined in the last month. She has been shuffeling her feet while walking, balance is poorer than previous, and weaker over all. Amelia feels like her memory is poorer than previous as well. She is wondering about another TIA. She would like that addressed while she is here. Amelia states that if Dr. Hubbard and PT/OT feel she is a good candidate for SWB for a week they would be willing to have her here. Sujit () does not drive. Mary Ellen has been driving herself and Sujit to appointments. Sujit cares for the home and makes meals. They were receiving Meals on Wheels but have stopped. Amelia will be starting this services back up and having the donation billing be sent to her home instead of Mary Ellen's. They are also interested in home health - They had [facility] in the past and really like their services. Amelia states that [facility] medications will come in blister packs. She states that [facility] will provide this service for them. Amelia would like private duty health care list. (set at nurses station with her name on the list) In the last month Mary Ellen has been in her robe and gown. She was unable to give Amelia the last bath that she had. Amelia states that Mary Ellen's home is better but they have a lot of stuff potentially a hoarding situation. Mary Ellen and Sujit have the transportation bus available and have used this service. Amelia will bring 4 wheeled walker that Mary Ellen uses if PT/OT feels this would benefit Mary Ellen. We would need to let her know if it is needed.
--- NOTE | 2021-03-31 12:44 | NUR ---
REPORT RECEIVED FROM IDALMIS GARCIA.
--- NOTE | 2021-03-31 13:12 | NUR ---
RESTING IN BED ON RT SIDE. NS INFUSING AT 125ML/HR TO INTACT IV SITE AT LT WRIST. CHEERFUL DURING CONVERSATION. REPORTS WANTING TO EAT AND REQUESTS TO ADVANCE DIET. AMBULATES TO BATHROOM AND BACK TO BED WITH WALKER. GAIT STEADY. REPORTS FEELING MOTION SICKNESS AFTER ACTIVITY.
[2021-03-31 14:19] VITALS: BP 109/58
[2021-03-31 15:50] VITALS: BP 133/59
[2021-03-31 17:05] VITALS: BP 110/64
--- NOTE | 2021-03-31 18:59 | NUR ---
REPORT PROVIDED TO ARACELI GARCIA.
--- NOTE | 2021-03-31 19:00 | NUR ---
Report received from Jackelin GARCIA.
--- NOTE | 2021-03-31 20:45 | NUR ---
HS meds given. Patient reports she's just achy all over-shoulders and neck but declines pain med. Alert and oriented x 4. Smiling and visits readily with nurse. Assisted to the bathroom and then to ambulate in hallway with walker. Does shuffle at and loses balance at times, CGA. Sits up on side of bed then rests back in bed.
[2021-03-31 21:34] VITALS: BP 125/64
--- NOTE | 2021-03-31 22:54 | NUR ---
Rests with eyes closed on left side. Respirations with ease.
[2021-04-01 02:00] VITALS: BP 124/62
[2021-04-01 05:46] VITALS: BP 160/71
[2021-04-01 07:49] LABS: BASO # 0.08 (0.02-0.10); EOS # 0.52 (0.04-0.40); EOS % 6.4 % (1.0-5.0); HEMATOCRIT 40.6 % (37.0-47.0); HEMOGLOBIN 12.9 g/dL (12.5-16.0); LYMPH# 3.07 (1.50-4.00); MEAN CELL VOLUME 86 fl (78-100); MEAN CORPUSCULAR HEMOGLOBIN 27 pg (27-31); MEAN CORPUSCULAR HGB CONC 32 g/dL (33-37); MEAN PLATELET VOLUME 7.9 fl (7.4-10.4); MONO # 0.78 (0.20-0.80); NEU # 3.69 (1.40-6.50); PLATELET COUNT 267 K/mm3 (130-400); RED CELL DISTRIBUTION WIDTH 13.9 % (11.5-14.5); WHITE BLOOD COUNT 8.2 K/mm3 (4.8-10.8)
[2021-04-01 08:04] LABS: ALBUMIN 3.8 g/dL (3.4-4.8); POTASSIUM 4.3 mmol/L (3.5-5.1)
[2021-04-01 08:05] LABS: CALCIUM 8.6 mg/dL (8.3-10.5)
[2021-04-01 08:06] LABS: TOTAL PROTEIN 6.7 g/dL (6.2-8.1)
[2021-04-01 08:08] LABS: TOTAL BILIRUBIN 0.6 mg/dL (0.2-1.2)
[2021-04-01 09:51] VITALS: BP 129/68
[2021-04-01 13:39] VITALS: BP 123/74
[2021-04-01 17:03] VITALS: BP 139/73
--- NOTE | 2021-04-01 18:57 | NUR ---
Report given to RADHA Leo.
--- NOTE | 2021-04-01 20:21 | NUR ---
Patient A&Ox4, resting in bed watching TV. c/o pain in back of neck. States she has had this pain for weeks before being in the hospital. PRN med given. No other concerns. Bed in lowest and locked position. Call light within reach.
[2021-04-01 21:42] VITALS: BP 142/78
[2021-04-02 01:53] VITALS: BP 145/74
[2021-04-02 06:09] VITALS: BP 148/62
--- NOTE | 2021-04-02 07:00 | NUR ---
REPORT RECEIVED FROM RADHA RAYGOZA. PATIENT RESTING IN BED WITH EYES CLOSED.
[2021-04-02 08:48] VITALS: BP 119/64
--- NOTE | 2021-04-02 12:24 | NUR ---
Called Niya with [facility] to see if they would take Mrs. Dutta. They said that they would and they remember her from a previous visit. This CM will keep them updated as to when she will discharge.
--- NOTE | 2021-04-02 13:00 | NUR ---
PROVIDER IN TO SEE PATIENT. PATIENT STATES SHE "WOULD LIKE TO GO HOME". PATIENT IS CURRENTLY RESTING IN BED. PATIENT HAS NO OTHER COMPLAINTS/NEEDS AT THIS TIME.
[2021-04-02 13:24] VITALS: BP 151/71
--- NOTE | 2021-04-02 14:29 | NUR ---
Follow up appointment before , next week. 04/08/21 Jaleesa is going to come pick her up and take her home. [facility] to see after discharge.
[2021-04-02] MEDS ORDERED: PROBIOTICA100 MILLIO PO (14:38)
--- NOTE | 2021-04-02 14:38 | NUR ---
Called [facility] Nicole asked for them to call Amelia for scheduling visits.
[2021-04-02] MEDS ORDERED: ONDANSETRON ODT8 MG PO (14:39)
--- NOTE | 2021-04-02 14:39 | NUR ---
F/U APPT WITH DR KENDRICK SCHEDULED FOR 1330 ON March.
[2021-04-02] MEDS ORDERED: CEFDINIR300 MG PO (14:40)
--- NOTE | 2021-04-02 15:55 | NUR ---
PATIENT DISCHARGED HOME WITH HOME HEALTH. DISCHARGE INSTURCTIONS DISSCUSED AND SENT WITH PATIENT. ALL PATIENT ITEMS AND BELONGINGS SENT HOME WITH PATIENT.
--- NOTE | 2021-04-03 09:46 | NUR ---
Faxed discharge instructions to Niya Harper at [facility]. They will see her today.
== END 2021-04-02 15:55 | disposition home health service (06) | DRG 690 ==
LOC: MED/SURG 19:11
PROVIDERS: Physician Assistant; ADMIT Nurse Practitioner
DX: N12 Tubulo-interstitial nephritis, not specified as acute or chronic (principal); K90.9 Intestinal malabsorption, unspecified; E87.1 Hypo-osmolality and hyponatremia; E86.0 Dehydration; F31.9 Bipolar disorder, unspecified; G47.33 Obstructive sleep apnea (adult) (pediatric); R73.03 Prediabetes; F41.1 Generalized anxiety disorder; M1A.9XX0 Chronic gout, unspecified, without tophus (tophi); M48.061 Spinal stenosis, lumbar region without neurogenic claudication; N28.9 Disorder of kidney and ureter, unspecified; E66.9 Obesity, unspecified; R19.7 Diarrhea, unspecified; R53.1 Weakness; Z88.1 Allergy status to other antibiotic agents
CPT/HCPCS: J0696; J1650; J2550; J7030

== ENCOUNTER → 2021-04-17 | Outpatient (CLI) | payer MEDICARE ==
[~2021-04-17] MED LIST changes: +CEFDINIR300 MG PO; +ONDANSETRON ODT8 MG PO; +PROBIOTICA100 MILLIO PO
[2021-04-17 14:41] LABS: BASO # 0.05 (0.02-0.10); EOS # 0.21 (0.04-0.40); EOS % 1.8 % (1.0-5.0); HEMATOCRIT 42.2 % (37.0-47.0); HEMOGLOBIN 13.7 g/dL (12.5-16.0); LYMPH# 3.08 (1.50-4.00); MEAN CELL VOLUME 85 fl (78-100); MEAN CORPUSCULAR HEMOGLOBIN 28 pg (27-31); MEAN CORPUSCULAR HGB CONC 33 g/dL (33-37); MONO # 1.28 (0.20-0.80); NEU # 7.02 (1.40-6.50); PLATELET COUNT 298 K/mm3 (130-400); RED BLOOD COUNT 4.98 M/mm3 (4.10-5.30); RED CELL DISTRIBUTION WIDTH 13.7 % (11.5-14.5); WHITE BLOOD COUNT 11.7 K/mm3 (4.8-10.8)
[2021-04-17 14:47] LABS: ALBUMIN 3.9 g/dL (3.4-4.8); POTASSIUM 4.6 mmol/L (3.5-5.1)
[2021-04-17 14:48] LABS: CALCIUM 9.4 mg/dL (8.3-10.5)
[2021-04-17 14:50] LABS: TOTAL PROTEIN 7.3 g/dL (6.2-8.1)
[2021-04-17 14:51] LABS: TOTAL BILIRUBIN 0.6 mg/dL (0.2-1.2)
[2021-04-17 14:53] LABS: URINE APPEARANCE CLOUDY; URINE BILIRUBIN NEGATIVE (NEGATIVE); URINE BLOOD TRACE (NEGATIVE); URINE COLOR YELLOW; URINE GLUCOSE NEGATIVE (NEGATIVE); URINE KETONE NEGATIVE (NEGATIVE); URINE LEUKOCYTE ESTERASE 2+ (NEGATIVE); URINE MUCUS PRESENT (NOT PRESENT); URINE NITRATE NEGATIVE (NEGATIVE); URINE PROTEIN(semi-quant) TRACE mg/dL (NEGATIVE); URINE UROBILINOGEN NORMAL (NORMAL); URINE WBC 31-50 /hpf (0-3)
== END ==
LOC: LAB 14:16
PROVIDERS: Internal Medicine
DX: N39.0 Urinary tract infection, site not specified (principal); G63 Polyneuropathy in diseases classified elsewhere; N39.46 Mixed incontinence; R73.03 Prediabetes

== ENCOUNTER → 2021-05-28 | Outpatient (CLI) | payer MEDICARE | LOC: RAD 11:19 | DX: G31.9 Degenerative disease of nervous system, unspecified (principal) ==

== ENCOUNTER → 2021-07-16 | Outpatient (CLI) | payer MEDICARE | LOC: LAB 09:51 | DX: R35.0 Frequency of micturition (principal) ==

== ENCOUNTER → 2021-09-24 | Outpatient (CLI) | payer MEDICARE ==
[2021-09-24 15:24] LABS: BASO # 0.09 K/mm3 (0.02-0.10); EOS # 0.27 K/mm3 (0.04-0.40); EOS % 2.2 % (1.0-5.0); HEMATOCRIT 42.2 % (37.0-47.0); HEMOGLOBIN 13.6 g/dL (12.5-16.0); LYMPH# 3.37 K/mm3 (1.50-4.00); MEAN CELL VOLUME 85 fl (78-100); MEAN CORPUSCULAR HEMOGLOBIN 27 pg (27-31); MEAN CORPUSCULAR HGB CONC 32 g/dL (33-37); MEAN PLATELET VOLUME 8.2 fl (7.4-10.4); MONO # 1.27 K/mm3 (0.20-0.80); NEU # 7.03 K/mm3 (1.40-6.50); PLATELET COUNT 279 K/mm3 (130-400); RED BLOOD COUNT 4.98 M/mm3 (4.10-5.30); RED CELL DISTRIBUTION WIDTH 14.1 % (11.5-14.5); WHITE BLOOD COUNT 12.1 K/mm3 (4.8-10.8)
[2021-09-24 15:36] LABS: ALBUMIN 4.1 g/dL (3.4-4.8); POTASSIUM 4.2 mmol/L (3.5-5.1)
[2021-09-24 15:37] LABS: CALCIUM 9.2 mg/dL (8.3-10.5)
[2021-09-24 15:39] LABS: TOTAL PROTEIN 7.3 g/dL (6.2-8.1)
[2021-09-24 15:41] LABS: TOTAL BILIRUBIN 0.6 mg/dL (0.2-1.2)
== END ==
LOC: LAB 15:08
PROVIDERS: Internal Medicine
DX: K90.9 Intestinal malabsorption, unspecified (principal); M1A.00X0 Idiopathic chronic gout, unspecified site, without tophus (tophi); R73.03 Prediabetes

== ENCOUNTER → 2021-12-30 | Outpatient (CLI) | payer MEDICARE ==
[2021-12-30 15:51] LABS: BASO # 0.07 K/mm3 (0.02-0.10); EOS # 0.32 K/mm3 (0.04-0.40); EOS % 2.6 % (1.0-5.0); HEMATOCRIT 42.5 % (37.0-47.0); HEMOGLOBIN 13.5 g/dL (12.5-16.0); LYMPH# 3.31 K/mm3 (1.50-4.00); MEAN CELL VOLUME 86 fl (78-100); MEAN CORPUSCULAR HEMOGLOBIN 27 pg (27-31); MEAN CORPUSCULAR HGB CONC 32 g/dL (33-37); MONO # 1.07 K/mm3 (0.20-0.80); NEU # 7.43 K/mm3 (1.40-6.50); PLATELET COUNT 312 K/mm3 (130-400); RED BLOOD COUNT 4.92 M/mm3 (4.10-5.30); RED CELL DISTRIBUTION WIDTH 14.9 % (11.5-14.5); WHITE BLOOD COUNT 12.2 K/mm3 (4.8-10.8)
[2021-12-30 15:59] LABS: URINE APPEARANCE CLOUDY; URINE COLOR YELLOW; URINE PROTEIN(semi-quant) 2+ (NEGATIVE)
[2021-12-30 16:00] LABS: URINE BILIRUBIN NEGATIVE (NEGATIVE); URINE BLOOD NEGATIVE (NEGATIVE); URINE GLUCOSE NEGATIVE (NEGATIVE); URINE KETONE NEGATIVE (NEGATIVE); URINE LEUKOCYTE ESTERASE 1+ (NEGATIVE); URINE MUCUS PRESENT (NOT PRESENT); URINE NITRATE NEGATIVE (NEGATIVE); URINE UROBILINOGEN NORMAL (NORMAL)
[2021-12-30 16:08] LABS: ALBUMIN 4.1 g/dL (3.4-4.8)
[2021-12-30 16:09] LABS: POTASSIUM 4.3 mmol/L (3.5-5.1)
[2021-12-30 16:10] LABS: CALCIUM 9.5 mg/dL (8.3-10.5)
[2021-12-30 16:11] LABS: TOTAL PROTEIN 7.4 g/dL (6.2-8.1)
[2021-12-30 16:13] LABS: TOTAL BILIRUBIN 0.7 mg/dL (0.2-1.2)
== END ==
LOC: LAB 15:38
PROVIDERS: Nurse Practitioner Family
DX: R10.32 Left lower quadrant pain (principal); R30.9 Painful micturition, unspecified; R10.9 Unspecified abdominal pain

== ENCOUNTER → 2022-01-26 | Outpatient (CLI) | payer MEDICARE ==
[2022-01-26 12:50] LABS: BASO # 0.08 K/mm3 (0.02-0.10); EOS # 0.17 K/mm3 (0.04-0.40); EOS % 1.5 % (1.0-5.0); HEMATOCRIT 42.6 % (37.0-47.0); HEMOGLOBIN 13.9 g/dL (12.5-16.0); LYMPH# 2.89 K/mm3 (1.50-4.00); MEAN CELL VOLUME 85 fl (78-100); MEAN CORPUSCULAR HEMOGLOBIN 28 pg (27-31); MEAN CORPUSCULAR HGB CONC 33 g/dL (33-37); MEAN PLATELET VOLUME 8.2 fl (7.4-10.4); MONO # 0.95 K/mm3 (0.20-0.80); NEU # 7.11 K/mm3 (1.40-6.50); PLATELET COUNT 285 K/mm3 (130-400); RED BLOOD COUNT 5.02 M/mm3 (4.10-5.30); WHITE BLOOD COUNT 11.2 K/mm3 (4.8-10.8)
[2022-01-26 12:58] LABS: ALBUMIN 4.1 g/dL (3.4-4.8); POTASSIUM 4.4 mmol/L (3.5-5.1)
[2022-01-26 13:00] LABS: TOTAL PROTEIN 7.3 g/dL (6.2-8.1)
[2022-01-26 13:02] LABS: TOTAL BILIRUBIN 0.6 mg/dL (0.2-1.2)
[2022-01-26 13:07] LABS: MAGNESIUM 1.67 mg/dL (1.60-2.60)
[2022-01-26 13:48] LABS: URINE APPEARANCE CLOUDY; URINE COLOR YELLOW
[2022-01-26 13:49] LABS: URINE BILIRUBIN NEGATIVE (NEGATIVE); URINE BLOOD TRACE (NEGATIVE); URINE GLUCOSE NEGATIVE (NEGATIVE); URINE KETONE TRACE (NEGATIVE); URINE LEUKOCYTE ESTERASE 2+ (NEGATIVE); URINE NITRATE POSITIVE (NEGATIVE); URINE PROTEIN(semi-quant) 1+ (NEGATIVE); URINE UROBILINOGEN NORMAL (NORMAL); URINE WBC 16-30 /hpf (0-3)
[2022-01-26 13:50] LABS: URINE MUCUS PRESENT (NOT PRESENT)
== END ==
LOC: LAB 12:36
PROVIDERS: Nurse Practitioner Family
DX: R30.9 Painful micturition, unspecified (principal); R19.7 Diarrhea, unspecified; R10.9 Unspecified abdominal pain; R82.4 Acetonuria; R25.2 Cramp and spasm

== ENCOUNTER → 2022-02-09 | Outpatient (CLI) | payer MEDICARE ==
[2022-02-09 16:53] LABS: URINE APPEARANCE CLEAR; URINE COLOR YELLOW
[2022-02-09 16:54] LABS: URINE BILIRUBIN NEGATIVE (NEGATIVE); URINE BLOOD TRACE (NEGATIVE); URINE GLUCOSE NEGATIVE (NEGATIVE); URINE KETONE NEGATIVE (NEGATIVE); URINE LEUKOCYTE ESTERASE 1+ (NEGATIVE); URINE MUCUS PRESENT (NOT PRESENT); URINE NITRATE NEGATIVE (NEGATIVE); URINE PROTEIN(semi-quant) 1+ (NEGATIVE); URINE UROBILINOGEN NORMAL (NORMAL); URINE WBC 31-50 /hpf (0-3)
== END ==
LOC: LAB 15:40
PROVIDERS: Nurse Practitioner Family
DX: R30.9 Painful micturition, unspecified (principal); M54.6 Pain in thoracic spine; R82.81 Pyuria

== ENCOUNTER → 2022-05-31 | Outpatient (CLI) | payer MEDICARE ==
[2022-05-31 14:58] LABS: HEMATOCRIT 43.6 % (37.0-47.0); HEMOGLOBIN 13.7 g/dL (12.5-16.0); MEAN CELL VOLUME 88 fl (78-100); MEAN CORPUSCULAR HEMOGLOBIN 28 pg (27-31); MEAN CORPUSCULAR HGB CONC 31 g/dL (33-37); MEAN PLATELET VOLUME 8.4 fl (7.4-10.4); PLATELET COUNT 266 K/mm3 (130-400); RED BLOOD COUNT 4.98 M/mm3 (4.10-5.30); RED CELL DISTRIBUTION WIDTH 13.9 % (11.5-14.5); WHITE BLOOD COUNT 17.4 K/mm3 (4.8-10.8)
[2022-05-31 16:00] LABS: LYMPHOCYTE 16 % (20-51); MONOCYTE 11 % (3-10); NEUTROPHILS 71 % (42-75)
== END ==
LOC: RAD 14:43
PROVIDERS: Nurse Practitioner
DX: M17.12 Unilateral primary osteoarthritis, left knee (principal); M11.262 Other chondrocalcinosis, left knee; Z87.39 Personal history of other diseases of the musculoskeletal system and connective tissue

== ENCOUNTER → 2022-06-01 | Outpatient (CLI) | payer MEDICARE ==
[2022-06-01 16:02] LABS: URINE APPEARANCE HAZY; URINE BILIRUBIN NEGATIVE (NEGATIVE); URINE BLOOD TRACE (NEGATIVE); URINE COLOR YELLOW; URINE GLUCOSE NEGATIVE (NEGATIVE); URINE KETONE NEGATIVE (NEGATIVE); URINE LEUKOCYTE ESTERASE 2+ (NEGATIVE); URINE MUCUS PRESENT (NOT PRESENT); URINE NITRATE NEGATIVE (NEGATIVE); URINE PROTEIN(semi-quant) 1+ (NEGATIVE); URINE UROBILINOGEN NORMAL (NORMAL); URINE WBC >50 /hpf (0-3)
== END ==
LOC: LAB 11:05
PROVIDERS: Nurse Practitioner
DX: D72.829 Elevated white blood cell count, unspecified (principal); M17.12 Unilateral primary osteoarthritis, left knee; Z87.39 Personal history of other diseases of the musculoskeletal system and connective tissue

== ENCOUNTER → 2022-06-02 | Outpatient (CLI) | payer MEDICARE | LOC: LAB 09:48 | DX: N39.0 Urinary tract infection, site not specified (principal) ==

== ENCOUNTER → 2022-06-07 | Outpatient (CLI) | payer MEDICARE ==
[2022-06-07 14:48] LABS: BASO # 0.06 K/mm3 (0.02-0.10); EOS # 0.42 K/mm3 (0.04-0.40); EOS % 4.5 % (1.0-5.0); HEMATOCRIT 40.5 % (37.0-47.0); HEMOGLOBIN 12.8 g/dL (12.5-16.0); LYMPH# 2.08 K/mm3 (1.50-4.00); MEAN CELL VOLUME 88 fl (78-100); MEAN CORPUSCULAR HEMOGLOBIN 28 pg (27-31); MEAN CORPUSCULAR HGB CONC 32 g/dL (33-37); MONO # 0.88 K/mm3 (0.20-0.80); NEU # 5.84 K/mm3 (1.40-6.50); PLATELET COUNT 290 K/mm3 (130-400); RED BLOOD COUNT 4.63 M/mm3 (4.10-5.30); RED CELL DISTRIBUTION WIDTH 13.5 % (11.5-14.5); WHITE BLOOD COUNT 9.3 K/mm3 (4.8-10.8)
== END ==
LOC: LAB 14:18
PROVIDERS: Internal Medicine
DX: N39.46 Mixed incontinence (principal); E78.2 Mixed hyperlipidemia; F41.1 Generalized anxiety disorder; F31.9 Bipolar disorder, unspecified; K90.9 Intestinal malabsorption, unspecified; G63 Polyneuropathy in diseases classified elsewhere; M1A.00X0 Idiopathic chronic gout, unspecified site, without tophus (tophi); R73.03 Prediabetes

== ENCOUNTER → 2022-12-04 | Outpatient (CLI) | payer MEDICARE ==
[~2022-12-04] MED LIST changes: +MACROBID 100 M100 MG PO
== END ==
LOC: LAB 14:05
DX: J20.9 Acute bronchitis, unspecified (principal); J31.0 Chronic rhinitis; R35.0 Frequency of micturition; Z20.822 Contact with and (suspected) exposure to COVID-19

== ENCOUNTER → 2022-12-16 | Outpatient (CLI) | payer MEDICARE | LOC: RAD 13:29 | DX: R10.9 Unspecified abdominal pain (principal); R14.0 Abdominal distension (gaseous) ==

== ENCOUNTER → 2023-10-21 | Outpatient (CLI) | payer MEDICARE ==
[~2023-10-21] MED LIST changes: +ZOFRAN ODT4 MG PO
[2023-10-21 16:07] LABS: URINE COLOR YELLOW (YELLOW)
[2023-10-21 16:08] LABS: PH-URINE 5.5 (5.0 - 8.0); URINE APPEARANCE CLOUDY (CLEAR); URINE BILIRUBIN NEGATIVE (NEGATIVE); URINE BLOOD TRACE-LYSED (NEGATIVE); URINE GLUCOSE NEGATIVE (NEGATIVE); URINE KETONE NEGATIVE (NEGATIVE); URINE LEUKOCYTE ESTERASE TRACE (NEGATIVE); URINE NITRATE NEGATIVE (NEGATIVE); URINE PROTEIN(semi-quant) TRACE (NEGATIVE)
== END ==
LOC: LAB 14:52
PROVIDERS: Nurse Practitioner Family
DX: R35.0 Frequency of micturition (principal)

== ENCOUNTER → 2023-11-14 | Outpatient (CLI) | payer MEDICARE ==
[2023-11-14 15:23] LABS: BASO # 0.08 K/mm3 (0.02-0.10); EOS # 0.37 K/mm3 (0.04-0.40); EOS % 3.3 % (1.0-5.0); HEMATOCRIT 43.3 % (37.0-47.0); HEMOGLOBIN 13.7 g/dL (12.5-16.0); LYMPH# 3.05 K/mm3 (1.50-4.00); MEAN CELL VOLUME 86 fl (78-100); MEAN CORPUSCULAR HEMOGLOBIN 27 pg (27-31); MEAN CORPUSCULAR HGB CONC 32 g/dL (33-37); MEAN PLATELET VOLUME 7.9 fl (7.4-10.4); MONO # 1.04 K/mm3 (0.20-0.80); NEU # 6.54 K/mm3 (1.40-6.50); PLATELET COUNT 275 K/mm3 (130-400); RED BLOOD COUNT 5.01 M/mm3 (4.10-5.30); RED CELL DISTRIBUTION WIDTH 13.7 % (11.5-14.5); WHITE BLOOD COUNT 11.1 K/mm3 (4.8-10.8)
[2023-11-14 15:29] LABS: ALBUMIN 4.1 g/dL (3.4-4.8)
[2023-11-14 15:30] LABS: CALCIUM 9.4 mg/dL (8.3-10.5)
[2023-11-14 15:31] LABS: TOTAL PROTEIN 6.9 g/dL (6.2-8.1)
[2023-11-14 15:33] LABS: TOTAL BILIRUBIN 0.5 mg/dL (0.2-1.2)
[2023-11-14 15:38] LABS: MAGNESIUM 1.86 mg/dL (1.60-2.60)
[2023-11-14 15:49] LABS: PH-URINE 5.5 (5.0 - 8.0); URINE APPEARANCE CLEAR (CLEAR); URINE BILIRUBIN NEGATIVE (NEGATIVE); URINE COLOR YELLOW (YELLOW); URINE GLUCOSE NEGATIVE (NEGATIVE); URINE KETONE NEGATIVE (NEGATIVE); URINE NITRATE NEGATIVE (NEGATIVE); URINE PROTEIN(semi-quant) NEGATIVE (NEGATIVE)
[2023-11-14 15:50] LABS: URINE BLOOD NEGATIVE (NEGATIVE); URINE LEUKOCYTE ESTERASE TRACE (NEGATIVE)
== END ==
LOC: LAB 14:54
PROVIDERS: Internal Medicine
DX: K90.9 Intestinal malabsorption, unspecified (principal); E78.2 Mixed hyperlipidemia; E11.9 Type 2 diabetes mellitus without complications; I10 Essential (primary) hypertension; M1A.00X0 Idiopathic chronic gout, unspecified site, without tophus (tophi); G63 Polyneuropathy in diseases classified elsewhere

== ENCOUNTER → 2023-11-25 | Outpatient (CLI) | payer MEDICARE ==
[~2023-11-25] MED LIST changes: +CEPHALEXIN500 M1 PO
[2023-11-25 12:58] LABS: URINE APPEARANCE CLEAR (CLEAR); URINE BILIRUBIN NEGATIVE (NEGATIVE); URINE BLOOD NEGATIVE (NEGATIVE); URINE COLOR YELLOW (YELLOW); URINE GLUCOSE NEGATIVE (NEGATIVE); URINE KETONE NEGATIVE (NEGATIVE); URINE NITRATE NEGATIVE (NEGATIVE); URINE PROTEIN(semi-quant) NEGATIVE (NEGATIVE)
[2023-11-25 12:59] LABS: URINE LEUKOCYTE ESTERASE 1+ (NEGATIVE)
[2023-11-25 13:00] LABS: URINE WBC 16-30 /hpf (0-3)
== END ==
LOC: LAB 12:24
PROVIDERS: Internal Medicine
DX: N39.0 Urinary tract infection, site not specified (principal)

== ENCOUNTER 2023-11-27 09:57 | Emergency (ER) | payer MEDICARE ==
[~2023-11-27] VITALS: Wt 77.9 kg
[~2023-11-27 09:57] MED LIST changes: -CEPHALEXIN500 M1 PO
[2023-11-27 11:02] LABS: BASO # 0.09 K/mm3 (0.02-0.10); EOS # 0.31 K/mm3 (0.04-0.40); EOS % 2.7 % (1.0-5.0); HEMATOCRIT 41.5 % (37.0-47.0); HEMOGLOBIN 13.5 g/dL (12.5-16.0); LYMPH# 2.11 K/mm3 (1.50-4.00); MEAN CELL VOLUME 86 fl (78-100); MEAN CORPUSCULAR HEMOGLOBIN 28 pg (27-31); MEAN CORPUSCULAR HGB CONC 33 g/dL (33-37); MEAN PLATELET VOLUME 7.8 fl (7.4-10.4); NEU # 7.82 K/mm3 (1.40-6.50); PLATELET COUNT 290 K/mm3 (130-400); RED BLOOD COUNT 4.83 M/mm3 (4.10-5.30); RED CELL DISTRIBUTION WIDTH 13.8 % (11.5-14.5); WHITE BLOOD COUNT 11.5 K/mm3 (4.8-10.8)
[2023-11-27 11:16] LABS: URINE APPEARANCE SLIGHTLY CLOUDY (CLEAR); URINE COLOR YELLOW (YELLOW)
[2023-11-27 11:17] LABS: PH-URINE 5.5 (5.0 - 8.0); URINE BILIRUBIN NEGATIVE (NEGATIVE); URINE BLOOD NEGATIVE (NEGATIVE); URINE GLUCOSE NEGATIVE (NEGATIVE); URINE KETONE NEGATIVE (NEGATIVE); URINE LEUKOCYTE ESTERASE 2+ (NEGATIVE); URINE NITRATE NEGATIVE (NEGATIVE); URINE PROTEIN(semi-quant) 1+ (NEGATIVE)
[2023-11-27 11:21] LABS: URINE MUCUS PRESENT (NOT PRESENT); URINE WBC 31-50 /hpf (0-3)
[2023-11-27] MEDS ORDERED: CEPHALEXIN500 M1 PO (13:01)
[2023-11-27 13:10] VITALS: BP 125/72
== END 2023-11-27 13:10 | disposition home or self-care (01) ==
LOC: ED 09:57
PROVIDERS: Family Medicine
DX: R07.89 Other chest pain (principal); N39.0 Urinary tract infection, site not specified; R07.81 Pleurodynia; E66.9 Obesity, unspecified; Z88.0 Allergy status to penicillin
CPT/HCPCS: J0696

== ENCOUNTER 2023-12-15 12:44 | Emergency (ER) | payer MEDICARE ==
[~2023-12-15] VITALS: Ht 152.4 cm; Wt 78.6 kg
[~2023-12-15 12:44] MED LIST changes: +CEPHALEXIN500 M1 PO
[2023-12-15] MEDS ORDERED: Ondansetron 4 MG/2 ML VIAL IV ONE (13:15)
[2023-12-15] MEDS ORDERED: NS 1,000 ML IV SCH ×2 (13:15→15:45)
[2023-12-15 13:24] LABS: BASO # 0.03 K/mm3 (0.02-0.10); EOS # 0.02 K/mm3 (0.04-0.40); EOS % 0.2 % (1.0-5.0); HEMATOCRIT 40.9 % (37.0-47.0); HEMOGLOBIN 13.1 g/dL (12.5-16.0); LYMPH# 1.11 K/mm3 (1.50-4.00); MEAN CELL VOLUME 86 fl (78-100); MEAN CORPUSCULAR HEMOGLOBIN 28 pg (27-31); MEAN CORPUSCULAR HGB CONC 32 g/dL (33-37); MEAN PLATELET VOLUME 7.9 fl (7.4-10.4); MONO # 0.68 K/mm3 (0.20-0.80); NEU # 10.08 K/mm3 (1.40-6.50); PLATELET COUNT 590 K/mm3 (130-400); RED BLOOD COUNT 4.77 M/mm3 (4.10-5.30)
[2023-12-15 13:29] LABS: SODIUM 138 mmol/L (136-145)
[2023-12-15 13:30] LABS: ALBUMIN 4.1 g/dL (3.4-4.8)
[2023-12-15 13:33] LABS: GLUCOSE 250 mg/dL (65-105); TOTAL PROTEIN 7.9 g/dL (6.2-8.1)
[2023-12-15 13:34] LABS: CARBON DIOXIDE 22 mmol/L (23-31); TOTAL BILIRUBIN 0.3 mg/dL (0.2-1.2)
[2023-12-15 13:34] LABS: URINE APPEARANCE CLEAR (CLEAR); URINE COLOR YELLOW (YELLOW)
[2023-12-15 13:35] LABS: PH-URINE 7.5 (5.0 - 8.0); URINE BILIRUBIN NEGATIVE (NEGATIVE); URINE BLOOD TRACE (NEGATIVE); URINE GLUCOSE TRACE (NEGATIVE); URINE KETONE 2+ (NEGATIVE); URINE LEUKOCYTE ESTERASE NEGATIVE (NEGATIVE); URINE NITRATE NEGATIVE (NEGATIVE); URINE PROTEIN(semi-quant) NEGATIVE (NEGATIVE); URINE WBC 0-1 /hpf (0-3)
[2023-12-15 13:38] LABS: AST-SGOT 13 U/L (5-34)
[2023-12-15 13:40] LABS: ALT/SGPT 14 U/L (0-55)
[2023-12-15 13:41] LABS: LIPASE 6 U/L (8-78)
[2023-12-15 13:53] LABS: TROPONIN-I < 0.030 ng/mL (0.00-0.033)
[2023-12-15] MEDS ORDERED: Morphine 4 MG/ML VIAL IV ONE (14:15)
[2023-12-15] MEDS ORDERED: Ketorolac 30 MG/ML VIAL IV ONE (14:15)
--- NOTE | 2023-12-15 14:15 | NUR ---
Barbara from Dr. Hubbard's office called Mary Ellen today regarding scheduling a quarterly visit with Dr. Hubbard. Mary Ellen expressed that she was not feeling well. Don's () had a neice that was to come over to help. Private Pay. The neice never showed up to help them in the home. They have had home health in the past. Not currently on service with anyone at this time. Eugenio advised to come to the walk in clinic. When the Burrous's arrived at the facility they escorted to the ER. Daughter in law Amelia is a retired nurse from [employer].
[2023-12-15] MEDS ORDERED: Pantoprazole 40 MG in NS 10 ML IV ONE (14:30)
[2023-12-15] MEDS ORDERED: Iohexol 300 - 100 ML VIAL IV ONE (15:03)
[2023-12-15] MEDS ORDERED: fentaNYL 100 MCG/2 ML VIAL IV ONE (15:45)
[2023-12-15] MEDS ORDERED: ZOFRAN ODT4 MG PO (16:30)
[2023-12-15] MEDS ORDERED: NORCO 325 MG-51 TA1 PO (16:32)
[2023-12-15 17:41] VITALS: BP 129/70
== END 2023-12-15 17:46 | disposition home or self-care (01) ==
LOC: ED 12:44
PROVIDERS: Nurse Practitioner
DX: K63.9 Disease of intestine, unspecified (principal); R11.2 Nausea with vomiting, unspecified; M54.9 Dorsalgia, unspecified; E66.9 Obesity, unspecified; Z87.39 Personal history of other diseases of the musculoskeletal system and connective tissue; Z68.33 Body mass index [BMI] 33.0-33.9, adult
CPT/HCPCS: C9113; J1885; J2270; J2405; J2765; J3010; J7030; Q9967

== ENCOUNTER → 2023-12-29 17:00 | Outpatient (RCR) | payer MEDICARE ==
[~2023-12-29 17:00] MED LIST changes: +NORCO 325 MG-51 TA1 PO
== END | disposition home or self-care (01) ==
LOC: SPEECH 12:54
DX: R41.3 Other amnesia (principal)

== ENCOUNTER → 2024-05-14 | Outpatient (CLI) | payer MEDICARE ==
[2024-05-14 16:10] LABS: ALBUMIN 4.2 g/dL (3.4-4.8)
[2024-05-14 16:12] LABS: CALCIUM 9.9 mg/dL (8.3-10.5)
[2024-05-14 16:13] LABS: PH-URINE 5.5 (5.0 - 8.0); TOTAL PROTEIN 7.3 g/dL (6.2-8.1); URINE APPEARANCE SLIGHTLY CLOUDY (CLEAR); URINE BILIRUBIN NEGATIVE (NEGATIVE); URINE BLOOD NEGATIVE (NEGATIVE); URINE COLOR YELLOW (YELLOW); URINE GLUCOSE NEGATIVE (NEGATIVE); URINE KETONE NEGATIVE (NEGATIVE); URINE LEUKOCYTE ESTERASE TRACE (NEGATIVE); URINE NITRATE NEGATIVE (NEGATIVE); URINE PROTEIN(semi-quant) NEGATIVE (NEGATIVE)
[2024-05-14 16:15] LABS: TOTAL BILIRUBIN 0.8 mg/dL (0.2-1.2); URINE MUCUS PRESENT (NOT PRESENT)
== END ==
LOC: LAB 15:27
PROVIDERS: Internal Medicine
DX: E11.9 Type 2 diabetes mellitus without complications (principal); I10 Essential (primary) hypertension; N39.0 Urinary tract infection, site not specified

== ENCOUNTER 2024-07-24 11:38 | Emergency (ER) | payer MEDICARE ==
[~2024-07-24] VITALS: Ht 154.9 cm; Wt 65.2 kg
[2024-07-24] MEDS ORDERED: COLCHICINE0.6 M1 PO (12:00)
[2024-07-24] MEDS ORDERED: VITAMIN B12500 MC2 PO (12:01)
[2024-07-24] MEDS ORDERED: CLARITIN10 M1 PO (12:02)
[2024-07-24] MEDS ORDERED: SERTRALINE HYD100 MG PO (12:03)
[2024-07-24] MEDS ORDERED: VITAMIN C500 M6 PO (12:05)
[2024-07-24] MEDS ORDERED: fentaNYL 100 MCG/2 ML VIAL IV ONE ×2 (12:15→14:30)
[2024-07-24 12:44] LABS: HEMATOCRIT 40.5 % (37.0-47.0); HEMOGLOBIN 13.4 g/dL (12.5-16.0); MEAN CELL VOLUME 82 fl (78-100); MEAN CORPUSCULAR HEMOGLOBIN 27 pg (27-31); MEAN CORPUSCULAR HGB CONC 33 g/dL (33-37); MEAN PLATELET VOLUME 8.1 fl (7.4-10.4); PLATELET COUNT 384 K/mm3 (130-400); RED BLOOD COUNT 4.97 M/mm3 (4.10-5.30); RED CELL DISTRIBUTION WIDTH 14.5 % (11.5-14.5)
[2024-07-24 12:45] LABS: WHITE BLOOD COUNT 31.4 K/mm3 (4.8-10.8)
[2024-07-24 12:52] LABS: CALCIUM 9.4 mg/dL (8.3-10.5)
[2024-07-24 12:53] LABS: TOTAL PROTEIN 6.3 g/dL (6.2-8.1)
[2024-07-24 12:55] LABS: TOTAL BILIRUBIN 0.4 mg/dL (0.2-1.2)
[2024-07-24 13:17] LABS: BAND 9 % (0-10); LYMPHOCYTE 7 % (20-51); NEUTROPHILS 74 % (42-75)
[2024-07-24 13:18] LABS: MONOCYTE 10 % (3-10)
[2024-07-24] MEDS ORDERED: Iohexol 300 - 100 ML VIAL IV ONE (13:22)
[2024-07-24] MEDS ORDERED: NS 1,000 ML IV SCH (13:30)
[2024-07-24 14:20] VITALS: BP 148/80
== END 2024-07-24 15:00 | disposition short-term general hospital (02) ==
LOC: ED 11:38
PROVIDERS: Physician Assistant
DX: K11.20 Sialoadenitis, unspecified (principal)
CPT/HCPCS: J0295; J3010; J7030; Q9967

== ENCOUNTER 2024-08-07 20:36 | Inpatient (IN) | payer MEDICARE ==
[~2024-08-07] VITALS: Wt 61.0 kg
[~2024-08-07 20:36] MED LIST changes: -BACTRIM DS TAB1 EACH PO; -ONDANSETRON HYDR4 MG PO
[2024-08-07] MEDS ORDERED: ONDANSETRON HYDR4 MG PO (21:12)
[2024-08-07] MEDS ORDERED: Ondansetron 4 MG/2 ML VIAL IV SCH (21:30)
[2024-08-07] MEDS ORDERED: NS 1,000 ML IV SCH (21:30)
[2024-08-07] MEDS ORDERED: traMADol 50 MG TAB PO PRN (21:45)
[2024-08-07 23:01] VITALS: BP 174/79
[2024-08-07] MEDS ORDERED: Potassium Chloride 100 ML IV SCH (23:45)
[2024-08-08 01:25] LABS: PH-URINE 5.5 (5.0 - 8.0); URINE APPEARANCE SLIGHTLY CLOUDY (CLEAR); URINE COLOR YELLOW (YELLOW); URINE GLUCOSE NEGATIVE (NEGATIVE); URINE KETONE 3+ (NEGATIVE); URINE PROTEIN(semi-quant) 1+ (NEGATIVE)
[2024-08-08 01:26] LABS: URINE BILIRUBIN 2+ (NEGATIVE); URINE BLOOD TRACE-INTACT (NEGATIVE); URINE LEUKOCYTE ESTERASE NEGATIVE (NEGATIVE); URINE NITRATE NEGATIVE (NEGATIVE); URINE WBC 0-1 /hpf (0-3)
[2024-08-08 03:21] VITALS: BP 175/73
[2024-08-08 06:16] LABS: BASO # 0.02 K/mm3 (0.02-0.10); EOS # 0.14 K/mm3 (0.04-0.40); HEMATOCRIT 35.4 % (37.0-47.0); HEMOGLOBIN 11.6 g/dL (12.5-16.0); LYMPH# 2.02 K/mm3 (1.50-4.00); MEAN CELL VOLUME 81 fl (78-100); MEAN CORPUSCULAR HEMOGLOBIN 27 pg (27-31); MEAN CORPUSCULAR HGB CONC 33 g/dL (33-37); MEAN PLATELET VOLUME 8.8 fl (7.4-10.4); MONO # 1.19 K/mm3 (0.20-0.80); NEU # 11.22 K/mm3 (1.40-6.50); PLATELET COUNT 265 K/mm3 (130-400); RED BLOOD COUNT 4.36 M/mm3 (4.10-5.30); RED CELL DISTRIBUTION WIDTH 15.5 % (11.5-14.5); WHITE BLOOD COUNT 14.6 K/mm3 (4.8-10.8)
[2024-08-08 06:40] LABS: TOTAL PROTEIN 5.6 g/dL (6.2-8.1)
[2024-08-08 06:42] LABS: TOTAL BILIRUBIN 0.4 mg/dL (0.2-1.2)
[2024-08-08 07:27] VITALS: BP 169/76
[2024-08-08] MEDS ORDERED: Potassium Chloride 100 ML IV SCH (07:30)
[2024-08-08] MEDS ORDERED: amLODIPine 5 MG TAB PO SCH (09:00)
[2024-08-08] MEDS ORDERED: Ascorbic Acid 500 MG TAB PO SCH (09:00)
[2024-08-08] MEDS ORDERED: Docusate Sodium 100 MG CAP PO SCH (09:00)
[2024-08-08] MEDS ORDERED: Loratadine 10 MG TAB PO SCH (09:00)
[2024-08-08] MEDS ORDERED: Cyanocobalamin (Vit B-12) 1,000 MCG TAB PO SCH (09:00)
[2024-08-08] MEDS ORDERED: Clopidogrel 75 MG TAB PO SCH (09:00)
[2024-08-08] MEDS ORDERED: droPERidol 2.5 MG/ML 2 ML VIAL IV PRN (10:30)
[2024-08-08 11:00] VITALS: BP 162/81
[2024-08-08] MEDS ORDERED: BACTRIM DS TAB1 EACH PO (11:37)
[2024-08-08 11:48] VITALS: BP 162/81
== END 2024-08-08 12:27 | DRG 683 ==
LOC: MED/SURG 20:36
PROVIDERS: Internal Medicine; ADMIT Physician Assistant
DX: N17.9 Acute kidney failure, unspecified (principal); C18.6 Malignant neoplasm of descending colon; I10 Essential (primary) hypertension; D64.9 Anemia, unspecified; R53.81 Other malaise; E87.6 Hypokalemia; Z79.891 Long term (current) use of opiate analgesic; Z90.710 Acquired absence of both cervix and uterus; Z90.49 Acquired absence of other specified parts of digestive tract; Z85.828 Personal history of other malignant neoplasm of skin; Z88.1 Allergy status to other antibiotic agents
CPT/HCPCS: J1650; J2405; J3480; J7030

== ENCOUNTER → 2024-08-07 | Outpatient (CLI) | payer MEDICARE ==
[~2024-08-07] MED LIST changes: +BACTRIM DS TAB1 EACH PO; +CLARITIN10 M1 PO; +COLCHICINE0.6 M1 PO; +ONDANSETRON HYDR4 MG PO; +SERTRALINE HYD100 MG PO; +VITAMIN B12500 MC2 PO; +VITAMIN C500 M6 PO
[2024-08-07 13:06] LABS: ALBUMIN 3.8 g/dL (3.4-4.8)
[2024-08-07 13:08] LABS: CALCIUM 9.3 mg/dL (8.3-10.5)
[2024-08-07 13:09] LABS: TOTAL PROTEIN 7.2 g/dL (6.2-8.1)
[2024-08-07 13:11] LABS: TOTAL BILIRUBIN 0.4 mg/dL (0.2-1.2)
[2024-08-07 13:15] LABS: MAGNESIUM 1.64 mg/dL (1.60-2.60)
[2024-08-07 13:17] LABS: BASO # 0.01 K/mm3 (0.02-0.10); EOS # 0.04 K/mm3 (0.04-0.40); EOS % 0.3 % (1.0-5.0); HEMATOCRIT 43.8 % (37.0-47.0); LYMPH# 1.69 K/mm3 (1.50-4.00); MEAN CELL VOLUME 82 fl (78-100); MEAN CORPUSCULAR HEMOGLOBIN 26 pg (27-31); MEAN CORPUSCULAR HGB CONC 32 g/dL (33-37); MEAN PLATELET VOLUME 8.2 fl (7.4-10.4); NEU # 12.53 K/mm3 (1.40-6.50); PLATELET COUNT 326 K/mm3 (130-400); RED BLOOD COUNT 5.34 M/mm3 (4.10-5.30); RED CELL DISTRIBUTION WIDTH 15.6 % (11.5-14.5); WHITE BLOOD COUNT 15.4 K/mm3 (4.8-10.8)
[2024-08-07 13:39] LABS: PH-URINE 5.5 (5.0 - 8.0); URINE APPEARANCE CLEAR (CLEAR); URINE BILIRUBIN 2+ (NEGATIVE); URINE BLOOD NEGATIVE (NEGATIVE); URINE COLOR YELLOW (YELLOW); URINE GLUCOSE NEGATIVE (NEGATIVE); URINE KETONE 4+ (NEGATIVE); URINE LEUKOCYTE ESTERASE NEGATIVE (NEGATIVE); URINE NITRATE NEGATIVE (NEGATIVE); URINE PROTEIN(semi-quant) 1+ (NEGATIVE)
[2024-08-07 13:41] LABS: URINE MUCUS PRESENT (NOT PRESENT)
== END ==
LOC: LAB 12:32
PROVIDERS: Internal Medicine
DX: E11.9 Type 2 diabetes mellitus without complications (principal); I10 Essential (primary) hypertension; N39.0 Urinary tract infection, site not specified